=== PATIENT | female | born 1985 | race Caucasian/White ===

== ENCOUNTER 2016-06-20 08:42 | Emergency (ER) | payer OTHER ==
[~2016-06-20] VITALS: Ht 170.2 cm; Wt 87.0 kg
[~2016-06-20 08:42] MED LIST: ACET1TAB40 PO; ALBU8.5H5 IH; AZIT250T94 PO; HYDR-3720 PO; IBUP800T25 PO; LOPE2CAP PO; MUPI22OI2 TOP; NAPR-260 PO; PRED20TA PO
[2016-06-20 08:53] VITALS: Ht 170.2 cm; Wt 87.0 kg
--- NOTE | 2016-06-20 09:09 | ERD ---
ER Documentation Chief Complaint Date/Time DATE: 06/20/16 Chief Complaint , vaginal bleeding HPI The patient is a 31-year-old female, A0, who presents to the Emergency Department with complaint of vaginal bleeding. The patient reports that after using the restroom this morning she wiped and noted a small amount of bleeding on the tissue paper. She has not had passage of any blood clots or tissue. The patient reports that her last menstrual period was 03/12/2016, and she believes that she is approximately 10.5 weeks . She has already obtained three ultrasounds during this , noting a live intrauterine gestation. She denies any abdominal pain or cramping. Denies dysuria, hematuria , flank pain, urinary frequency or urgency. Denies any vaginal discharge. Denies headache, dizziness, weakness, nausea, vomiting, diarrhea, lower extremities edema, calf swelling or calf tenderness. No other complaints at this time. ROS All systems reviewed and are negative except as per history of present illness. Medications Home Meds Active Scripts Nitrofurantoin Monohyd Macrocr (Macrobid) 100 Mg Capsr, 100 MG PO BID for 7 Days , CAP Prov:PAULY STEARNS PA-C 06/20/16 Prednisone* (Prednisone*) 20 Mg Tab, 40 MG PO DAILY for 4 Days, TAB Prov:JUSTICE NATHAN 02/16/16 Naproxen* (Naprosyn*) 500 Mg Tablet, 500 MG PO BID Y for PAIN AND/OR INFLAMMATION, #30 TAB Prov:LESVIA REDMAN PA-C 01/23/16 Mupirocin* (Bactroban*) 2% -22 Gram Oint...g., 1 APPLIC TOP BID for 7 Days, EA Prov:ROHAN BALLARD PA-C 12/28/15 Azithromycin* (Zithromax*) 250 Mg Tablet, 250 MG PO .JULIO CESAR DIRECTED, #6 TAB TAKE 500 MG (2 TABS) THE FIRST DAY THEN 250 MG (1 TAB) DAYS 2-5 Prov:NAHOMY ALMENDAREZ DO 04/28/15 Hydrocodone Bit-Acetaminophen* ([place]*) 7.5-325 Tablet, 1 TAB PO Q4H Y for PAIN , #20 TAB Prov:NAHOMY ALMENDAREZ DO 04/28/15 Ibuprofen* (Motrin*) 800 Mg Tab, 800 MG PO Q6H Y for PAIN AND OR ELEVATED TEMP, #30 TAB Prov:NAHOMY ALMENDAREZ DO 04/28/15 Prednisone* (Prednisone*) 20 Mg Tab, 60 MG PO DAILY for 5 Days, TAB 60mg po q day x 3 days, then 40mg po q day x 2 days. Prov:MANNY VINSON MD 01/06/15 Loperamide Hcl* (Imodium*) 2 Mg Capsule, 2 MG PO .AFTER EA LOOSE BM Y for DIARRHEA, #10 TAB Prov:MANNY VINSON MD 11/20/14 Acetaminophen-Codeine* (Acetaminophen-Cod #3*) 300-30 Mg Tab, 1 TAB PO Q4H Y for PAIN, #12 TAB Prov:MANNY VINSON MD 11/20/14 Azithromycin* (Zithromax*) 250 Mg Tablet, 250 MG PO .ZPACK DIRECTED, #6 TAB TAKE 500 MG (2 TABS) THE FIRST DAY THEN 250 MG (1 TAB) DAYS 2-5 Prov:MANNY VINSON MD 11/20/14 Reported Medications Albuterol Sulfate* (Albuterol Sulfate* HFA) 8.5 Gm Hfa.aer.ad, 2 PUFF IH Q4H Y for WHEEZING AND SOB, EA 12/23/14 Allergies Allergies: Coded Allergies: No Known Allergies (Verified Allergy, Mild, 01/23/16) PMhx/Soc History of Surgery: No Anesthesia Reaction: No Hx Neurological Disorder: No Hx Respiratory Disorders: No Hx Cardiac Disorders: No Hx Psychiatric Problems: No Hx Miscellaneous Medical Probl: No Hx Alcohol Use: No Hx Substance Use: No Hx Tobacco Use: No Physical Exam Vitals Vital Signs Date Time Temp Pulse Resp B/P Pulse Ox O2 Delivery O2 Flow Rate FiO2 06/20/16 08:53 98.2 70 18 120/76 98 Physical Exam GENERAL: Well-developed, well-nourished, female, in no acute distress. HEENT: Head is normocephalic, atraumatic. No scleral pallor or icterus. Pupils equal, round and reactive to light. Extraocular movements intact. Conjunctiva pink. Moist mucous membranes. NECK: Supple. RESPIRATORY: Lungs are clear to auscultation bilaterally. Equal breath sounds. Normal expiratory effort. CARDIOVASCULAR: Regular rate and rhythm. S1 and S2 normal. GASTROINTESTINAL: Abdomen is soft, non-tender, and non-distended. No guarding, no rebound tenderness. Normal bowel sounds. N FLANK: No CVA tenderness. BACK: No midline tenderness. EXTREMITIES: No clubbing, cyanosis, or edema. Normal skin perfusion. Moving all extremities. Muscle tone is normal. No focal swelling or erythema. NEUROLOGIC: The patient is alert, awake, and oriented x 3. No focal neurologic deficits. INTEGUMENT: Skin is intact. Warm and dry. No rashes, no petechiae present. PSYCHIATRIC: Cooperative. Appropriate. Result Diagram: 06/20/16925 Results 24 hrs Laboratory Tests Test 06/20/16 09:20 06/20/16 09:26 Urine Color LT. YELLOW Urine Clarity CLEAR Urine pH 6.0 Urine Specific [place] 1.025 Urine Ketones NEGATIVE Urine Nitrite NEGATIVE Urine Bilirubin NEGATIVE Urine Urobilinogen 0.2 E.U./dL Urine Leukocyte Esterase NEGATIVE Urine Microscopic RBC 5-10/HPF Urine Microscopic WBC 10-25/HPF Urine Epithelial Cells MANY Urine Bacteria MANY Urine Mucus MANY Urine Hemoglobin 1+ Urine Glucose NEGATIVE% Urine Total Protein NEGATIVE White Blood Count 11.710^3/ul Red Blood Count 4.1610^6/ul Hemoglobin 12.0g/dl Hematocrit 35.5% Mean Corpuscular Volume 85.3fl Mean Corpuscular Hemoglobin 28.8pg Mean Corpuscular Hemoglobin Concent 33.8g/dl Red Cell Distribution Width 16.7% Platelet Count 66658^3/UL Mean Platelet Volume 9.3fl Neutrophils % 71.9% Lymphocytes % 16.6% Monocytes % 6.3% Eosinophils % 4.2% Basophils % 0.5% Nucleated Red Blood Cells % 0.0/100WBC Neutrophils # 8.410^3/ul Lymphocytes # 1.910^3/ul Monocytes # 0.710^3/ul Eosinophils # 0.510^3/ul Basophils # 0.110^3/ul Nucleated Red Blood Cells # 0.010^3/ul Beta HCG, Quantitative 54036.0mIU/ml Procedures/MDM DIAGNOSTIC TESTS AND INTERPRETATION: PROCEDURE: US OB. CLINICAL INDICATION: Vaginal bleeding. TECHNIQUE: Transabdominal and transvaginal views of the pelvis are available for review. COMPARISON: No. FINDINGS: The uterus and is normal in size containing a gestational sac. The gestational sac is identified in the endometrial cavity containing a yolk sac. The yolk sac measures 6.4 mm. There is an anterior placenta with no evidence of a subchorionic hemorrhage. No free fluid is noted in the cul-de-sac. [place]-rump length: 4.7 cm equals 11 weeks 4 days. A U A equals 10 weeks 6 days prior heart rate: 166 beats per minute Nuchal translucency: Not evaluated. Ultrasound estimated gestational age: 1022-vzdo-8-days. There is no free fluid. The right ovary measures 3.2 x 2 x 1.6 cm with normal blood flow on Doppler imaging. The left ovary is not visualized. No abnormal adnexal mass is noted. IMPRESSION: Single live intrauterine with an estimated gestational age of 10-week 6 days.. Physician Baljit Date Time Electronically viewed and signed by Esteban Maynard Physician on 06/20/2016 10:07 The possibility of threatened was discussed with the patient and she was told to follow up with her TEXTURE ARTIST within 2-3 days for re-evaluation. The patient complies and agrees with plan. MEDICAL DECISION MAKING: This is a 31-year-old female presenting to the Emergency Department complaining of vaginal bleeding. She had no significant abnormalities on physical examination. Vital signs were normal. Differential diagnosis includes, but is not limited to, ectopic , cervicitis, fibroids, molar , implantation bleeding, heterotopic , septic , missed , incomplete , inevitable , threatened , complete , coagulopathy, fibroids, adenomyosis, endometriosis, neoplasia, vaginitis, PID, vaginal trauma, dysfunctional uterine bleeding. No significant abnormalities were noted on testing ordered. Beta hCG is 80,377. Rh (+), no indication for RhoGAM. Ultrasound performed revealed an intrauterine gestation of 10 weeks 6 days. Additionally, urinalysis revealed 10-25 WBCs with many bacteria, concerning for urinary tract infection. Urine culture sent. After rest, the patient reports no new complaints. Upon review and interpretation of the patient's presentation and overall ER course, I believe the patient's symptoms are most consistent with threatened , urinary tract infection, vaginal bleeding during . At this time the patient patient is in stable condition with and therefore she can be discharged home with prescription for Macrobid and given strict return precautions for signs of deteriorating or worsening condition. The patient is advised to follow up with her TEXTURE ARTIST within 2-3 days for reevaluation and further management, or return to the ER sooner for any worsening symptoms. I shared all laboratory and diagnostic imaging studies with the patient at length and in great detail, and the patient verbally understands and agrees with the plan for further observation and care as an outpatient. At the time of discharge , all questions were answered. Departure Diagnosis: Primary Impression: Threatened Additional Impressions: Vaginal bleeding in patient at less than 20 weeks gestation Urinary tract infection Urinary tract infection type: acute cystitis Hematuria presence: with hematuria Qualified Code: N30.01 - Acute cystitis with hematuria Condition: Stable Patient Instructions: Bleeding During Early , Possible Miscarriage ( Threatened ), Understanding Urinary Tract Infections (UTIs) Additional Instructions: Call your TEXTURE ARTIST TOMORROW for an appointment during the next 2-3 days for recheck of beta hCG, reevaluation and further management. See the doctor sooner or return here if your condition worsens before your appointment time. PAULY STEARNS PA-C Jun 20, 2016 09:09
[2016-06-20 09:36] LABS: ADD SCAN DIFF NO
[2016-06-20 09:37] LABS: BASOPHIL # 0.1 10^3/ul (0.0-0.1); BASOPHILS % 0.5 % (0.0-2.0); EOSINOPHILS # 0.5 10^3/ul (0.0-0.5); EOSINOPHILS % 4.2 % (0.0-7.0); HEMATOCRIT 35.5 % (37.0-47.0); LYMPHOCYTES # 1.9 10^3/ul (0.8-2.9); LYMPHOCYTES % 16.6 % (15.0-51.0); MEAN CORPUSCULAR HEMOGLOBIN 28.8 pg (29.0-33.0); MEAN CORPUSCULAR HGB CONC 33.8 g/dl (32.0-37.0); MEAN CORPUSCULAR VOLUME 85.3 fl (82.0-101.0); MEAN PLATELET VOLUME 9.3 fl (7.4-10.4); MONOCYTE # 0.7 10^3/ul (0.3-0.9); MONOCYTES % 6.3 % (0.0-11.0); NEUTROPHIL # 8.4 10^3/ul (1.6-7.5); NEUTROPHILS % 71.9 % (39.0-77.0); PLATELET COUNT 374 10^3/UL (140-415); RED BLOOD COUNT 4.16 10^6/ul (4.20-5.40); RED CELL DISTRIBUTION WIDTH 16.7 % (11.5-14.5); WHITE BLOOD COUNT 11.7 10^3/ul (4.8-10.8)
[2016-06-20 09:38] LABS: ADD UMIC YES; URINE BILIRUBIN (Dip) NEGATIVE (NEGATIVE); URINE BLOOD (Dip) 1+ (NEGATIVE); URINE COLOR LT. YELLOW (YELLOW); URINE GLUCOSE (Dip) NEGATIVE (NEGATIVE); URINE KETONES (Dip) NEGATIVE (NEGATIVE); URINE LEUKOCYTE ESTERASE (Dip) NEGATIVE (NEGATIVE); URINE NITRITE (Dip) NEGATIVE (NEGATIVE); URINE TOTAL PROTEIN (Dip) NEGATIVE (NEGATIVE); URINE UROBILINOGEN (Dip) 0.2 E.U./dL (0.1-1.0)
[2016-06-20 09:45] LABS: BACTERIA,URINE MANY; MUCUS,URINE MANY
--- NOTE | 2016-06-20 10:07 | RADRPT ---
PROCEDURE: US OB. CLINICAL INDICATION: Vaginal bleeding. TECHNIQUE: Transabdominal and transvaginal views of the pelvis are available for review. COMPARISON: No. FINDINGS: The uterus and is normal in size containing a gestational sac. The gestational sac is identified in the endometrial cavity containing a yolk sac. The yolk sac measures 6.4 mm. There is an anterior p lacenta with no evidence of a subchorionic hemorrhage. No free fluid is noted in the cul-de-sac. [place]-rump length:4.7 cm equals 11 weeks 4 days. A U A equals 10 weeks 6 days prior heart rate:166 beats per minute Nuchal translucency:Not evaluated. Ultrasound estimated gestational age:1080-okgk-9-days. There is no free fluid. The right ovary measures 3.2 x 2 x 1.6 cm with normal blood flow on Doppler imaging. The left ovary is not visualized. No abnormal adnexal mass is noted. IMPRESSION: 1. Single live intrauterine with an estimated gestational age of 10-week 6 days.. RPTAT:AAJJ Physician Baljit Date Time Electronically viewed and signed by Physician Baljit on 06/20/2016 10:07 RICKI/
[2016-06-20] MEDS ORDERED: MACBID PO (10:40)
== END 2016-06-20 10:45 | disposition home or self-care (01) ==
LOC: FTE 08:42
DX: O20.0 Threatened abortion (principal); O23.11 Infections of bladder in pregnancy, first trimester; J45.909 Unspecified asthma, uncomplicated; O99.511 Diseases of the respiratory system complicating pregnancy, first trimester; Z3A.10 10 weeks gestation of pregnancy
CPT/HCPCS: 36415; 76801; 81001; 84702; 85025; 86900; 86901; 87086; Z7502; 81003

== ENCOUNTER 2016-08-13 15:39 | Emergency (ER) | payer OTHER ==
[~2016-08-13] VITALS: Ht 170.2 cm; Wt 89.5 kg
[~2016-08-13 15:39] MED LIST changes: +MACBID PO
[2016-08-13 15:45] VITALS: Ht 170.2 cm; Wt 89.5 kg
[2016-08-13 18:08] LABS: URINE BLOOD (Dip) POC 2+ (NEGATIVE)
--- NOTE | 2016-08-13 18:37 | ERD ---
ER Documentation Chief Complaint Date/Time DATE: 08/13/16 TIME: 18:37 Chief Complaint BIB SELF C/O BACK PAIN SINCE FRIDAY. 19 WEEKS HPI Is a 31-year-old female who presents the emergency department today complaining of low back pain for the past 5 days. She states she has taken Tylenol with limited improvement in pain. Denies any falls or trauma. States she is 19 weeks . States the pain was a little bit down into her buttocks. Denies any fevers or chills, loss of bowel or bladder control. Denies any dysuria, vaginal bleeding. ROS All systems reviewed and are negative except as per history of present illness. Medications Home Meds Active Scripts Nitrofurantoin Monohyd Macrocr (Macrobid) 100 Mg Capsr, 100 MG PO BID for 7 Days , CAP Prov:PAULY STEARNS PA-C 06/20/16 Prednisone* (Prednisone*) 20 Mg Tab, 40 MG PO DAILY for 4 Days, TAB Prov:JUSTICE NATHAN 02/16/16 Naproxen* (Naprosyn*) 500 Mg Tablet, 500 MG PO BID Y for PAIN AND/OR INFLAMMATION, #30 TAB Prov:LESVIA REDMAN PA-C 01/23/16 Mupirocin* (Bactroban*) 2% -22 Gram Oint...g., 1 APPLIC TOP BID for 7 Days, EA Prov:ROHAN BALLARD PA-C 12/28/15 Azithromycin* (Zithromax*) 250 Mg Tablet, 250 MG PO .ZPACK DIRECTED, #6 TAB TAKE 500 MG (2 TABS) THE FIRST DAY THEN 250 MG (1 TAB) DAYS 2-5 Prov:NAHOMY ALMENDAREZ DO 04/28/15 Hydrocodone Bit-Acetaminophen* ([place]*) 7.5-325 Tablet, 1 TAB PO Q4H Y for PAIN , #20 TAB Prov:NAHOMY ALMENDAREZ DO 04/28/15 Ibuprofen* (Motrin*) 800 Mg Tab, 800 MG PO Q6H Y for PAIN AND OR ELEVATED TEMP, #30 TAB Prov:NAHOMY ALMENDAREZ AOvidio DO 04/28/15 Prednisone* (Prednisone*) 20 Mg Tab, 60 MG PO DAILY for 5 Days, TAB 60mg po q day x 3 days, then 40mg po q day x 2 days. Prov:MANNY VINSON MD 01/06/15 Loperamide Hcl* (Imodium*) 2 Mg Capsule, 2 MG PO .AFTER EA LOOSE BM Y for DIARRHEA, #10 TAB Prov:MANNY VINSON MD 11/20/14 Acetaminophen-Codeine* (Acetaminophen-Cod #3*) 300-30 Mg Tab, 1 TAB PO Q4H Y for PAIN, #12 TAB Prov:MANNY VINSON MD 11/20/14 Azithromycin* (Zithromax*) 250 Mg Tablet, 250 MG PO .ZPACK DIRECTED, #6 TAB TAKE 500 MG (2 TABS) THE FIRST DAY THEN 250 MG (1 TAB) DAYS 2-5 Prov:MANNY VINSON MD 11/20/14 Reported Medications Albuterol Sulfate* (Albuterol Sulfate* HFA) 8.5 Gm Hfa.aer.ad, 2 PUFF IH Q4H Y for WHEEZING AND SOB, EA 12/23/14 Allergies Allergies: Coded Allergies: No Known Allergies (Verified Allergy, Mild, 01/23/16) PMhx/Soc History of Surgery: Yes () Anesthesia Reaction: No Hx Neurological Disorder: No Hx Respiratory Disorders: Yes (ASTHMA) Hx Cardiac Disorders: No Hx Psychiatric Problems: No Hx Miscellaneous Medical Probl: No Hx Alcohol Use: No Hx Substance Use: No Hx Tobacco Use: No Smoking Status: Never smoker Physical Exam Vitals Vital Signs Date Time Temp Pulse Resp B/P Pulse Ox O2 Delivery O2 Flow Rate FiO2 08/13/16 15:45 98.5 92 20 123/58 98 Physical Exam Const: No acute distress Head: Atraumatic Eyes: Normal Conjunctiva ENT: Normal External Ears, Nose and Mouth. Neck: Full range of motion..~ No meningismus. Resp: Clear to auscultation bilaterally Cardio: Regular rate and rhythm, no murmurs Skin: No petechiae or rashes Back: Midline tenderness and bilateral paraspinal tenderness. Full active range of motion. Negative straight leg raise. Pulses 2+. Distal neurovascularly intact. Ext: No cyanosis, or edema Neur: Awake and alert Psych: Normal Mood and Affect Results 24 hrs Laboratory Tests Test 08/13/16 18:12 Bedside Urine pH (LAB) 5.5 Bedside Urine Protein (LAB) Negative Bedside Urine Glucose (UA) Negative Bedside Urine Ketones (LAB) Negative Bedside Urine Blood 2+ Bedside Urine Nitrite (LAB) Negative Bedside Urine Leukocyte Esterase (L Negative Procedures/MDM This is a 31-year-old female presents the emergency department today complaining of low back pain for the past 5 days. Patient is 19 weeks . She is had no trauma and I do not feel that she requires imaging at this time. Low suspicion for acute fracture dislocation. She is afebrile and otherwise well-appearing. She has no loss of bowel or bladder control. Low suspicion for cauda equina or abscess. Did obtain a UA UA negative for infection. 2+ hematuria Patient denied any vaginal bleeding and I am unsure as to cause of her hematuria however it is possible that she may have a kidney stone. Given the UA is negative for infection, low suspicion for pyelonephritis. Do not feel the patient requires antibiotics at this time. I have explained to the patient that she needs to have further evaluation of the hematuria by her [employer] and primary care physician. Patient appears to have good follow-up. Patient understood. Patient symptoms at this time is consistent with back pain and sciatic type pain in . Patient was instructed that she may continue taking the Tylenol. She was instructed to alternate ice and heat have asked Valentin to her that she may benefit from physical therapy. Patient understood Discussed the patient with Dr. Mckeon and he is in agreement with the plan. Departure Diagnosis: Primary Impression: Back pain Back pain location: low back pain Chronicity: acute Back pain laterality: midline Sciatica presence: unspecified whether sciatica present Qualified Code: M54.5 - Acute midline low back pain, with sciatica presence unspecified Additional Impression: Hematuria Condition: Fair Patient Instructions: Back Pain (Acute Or Chronic), Hematuria, Back Pain W/ Sciatica Additional Instructions: Call your primary care doctor TOMORROW for an appointment during the next 1-2 days.See the doctor sooner or return here if your condition worsens before your appointment time. Continue taking Tylenol for pain Follow-up with your primary care physician for possible referral to physical therapy Do gentle walking exercises TONE MOSQUEDA PA-C Aug 13, 2016 18:37
== END 2016-08-13 18:41 | disposition home or self-care (01) ==
LOC: FTE 15:39
DX: O26.892 Other specified pregnancy related conditions, second trimester (principal); M54.5 Low back pain; R31.9 Hematuria, unspecified; O99.512 Diseases of the respiratory system complicating pregnancy, second trimester; J45.909 Unspecified asthma, uncomplicated; Z3A.19 19 weeks gestation of pregnancy
CPT/HCPCS: 81003; Z7502; 99282

== ENCOUNTER 2016-08-27 16:53 | Emergency (ER) | payer OTHER ==
[~2016-08-27] VITALS: Ht 170.2 cm; Wt 90.0 kg
[2016-08-27 17:02] VITALS: Ht 170.2 cm; Wt 90.0 kg
[2016-08-27] MEDS ORDERED: ACET500C5 PO (17:30)
[2016-08-27] MEDS ORDERED: AMO500 PO (17:30)
[2016-08-27] MEDS ORDERED: D-ME473S18 PO (17:30)
--- NOTE | 2016-08-27 17:34 | ERD ---
ER Documentation Chief Complaint Date/Time DATE: 08/27/16 TIME: 17:33 Chief Complaint FEVER, DEAL, CONGESTION X1 DAY, DENIES SYMPTOMS S/ 21 WKS HPI This 31-year-old female presents with congestion cough and ear pain for last 3 days. She denies fevers. She is 29 weeks by dates. She denies abdominal pain, vaginal bleeding ROS All systems reviewed and are negative except as per history of present illness. Medications Home Meds Active Scripts Acetaminophen* (Tylophen*) 500 Mg Capsule, 1 CAP PO Q6H Y for PAIN AND OR ELEVATED TEMP, #15 CAP Prov:MANNY VINSON MD 08/27/16 Dextromethorphan Hb-Promethazine Hcl (Promethazine DM Syrup) 473 Ml Syrup, 5 ML PO Q6H Y for COUGH, #4 OZ Prov:MANNY VINSON MD 08/27/16 Amoxicillin* (Amoxicillin*) 500 Mg Cap, 500 MG PO TID for 10 Days, CAP Prov:MANNY VINSON MD 08/27/16 Nitrofurantoin Monohyd Macrocr (Macrobid) 100 Mg Capsr, 100 MG PO BID for 7 Days , CAP Prov:PAULY STEARNS PA-C 06/20/16 Prednisone* (Prednisone*) 20 Mg Tab, 40 MG PO DAILY for 4 Days, TAB Prov:JUSTICE NATHAN 02/16/16 Naproxen* (Naprosyn*) 500 Mg Tablet, 500 MG PO BID Y for PAIN AND/OR INFLAMMATION, #30 TAB Prov:LESVIA REDMAN PA-C 01/23/16 Mupirocin* (Bactroban*) 2% -22 Gram Oint...g., 1 APPLIC TOP BID for 7 Days, EA Prov:ROHAN BALLARD PA-C 12/28/15 Azithromycin* (Zithromax*) 250 Mg Tablet, 250 MG PO .JULIO CESAR DIRECTED, #6 TAB TAKE 500 MG (2 TABS) THE FIRST DAY THEN 250 MG (1 TAB) DAYS 2-5 Prov:NAHOMY ALMENDAREZ DO 04/28/15 Hydrocodone Bit-Acetaminophen* ([place]*) 7.5-325 Tablet, 1 TAB PO Q4H Y for PAIN , #20 TAB Prov:LEKKOSNAHOMY DO 04/28/15 Ibuprofen* (Motrin*) 800 Mg Tab, 800 MG PO Q6H Y for PAIN AND OR ELEVATED TEMP, #30 TAB Prov:NAHOMY ALMENDAREZ DO 04/28/15 Prednisone* (Prednisone*) 20 Mg Tab, 60 MG PO DAILY for 5 Days, TAB 60mg po q day x 3 days, then 40mg po q day x 2 days. Prov:MANNY VINSON MD 01/06/15 Loperamide Hcl* (Imodium*) 2 Mg Capsule, 2 MG PO .AFTER EA LOOSE BM Y for DIARRHEA, #10 TAB Prov:MANNY VINSON MD 11/20/14 Acetaminophen-Codeine* (Acetaminophen-Cod #3*) 300-30 Mg Tab, 1 TAB PO Q4H Y for PAIN, #12 TAB Prov:MANNY VINSON MD 11/20/14 Azithromycin* (Zithromax*) 250 Mg Tablet, 250 MG PO .ZPACK DIRECTED, #6 TAB TAKE 500 MG (2 TABS) THE FIRST DAY THEN 250 MG (1 TAB) DAYS 2-5 Prov:MANNY VINSON MD 11/20/14 Reported Medications Albuterol Sulfate* (Albuterol Sulfate* HFA) 8.5 Gm Hfa.aer.ad, 2 PUFF IH Q4H Y for WHEEZING AND SOB, EA 12/23/14 Allergies Allergies: Coded Allergies: No Known Allergies (Verified Allergy, Mild, 01/23/16) PMhx/Soc History of Surgery: Yes () Anesthesia Reaction: No Hx Neurological Disorder: No Hx Respiratory Disorders: Yes (ASTHMA) Hx Cardiac Disorders: No Hx Psychiatric Problems: No Hx Miscellaneous Medical Probl: No Hx Alcohol Use: No Hx Substance Use: No Hx Tobacco Use: No Physical Exam Vitals Vital Signs Date Time Temp Pulse Resp B/P Pulse Ox O2 Delivery O2 Flow Rate FiO2 08/27/16 17:02 99.4 108 20 132/69 96 Physical Exam Const: [], Not ill-appearing per Head: Atraumatic Eyes: Normal Conjunctiva ENT: Normal External Ears, Nose and Mouth. TMs show some slight redness and decreased light reflex. There is clear yellow nasal discharge. There is postnasal drip. Neck: Full range of motion..~ No meningismus. Resp: Clear to auscultation bilaterally Cardio: Regular rate and rhythm, no murmurs Abd: Soft, non tender, non distended. Normal bowel sounds Skin: No petechiae or rashes Back: No midline or flank tenderness Ext: No cyanosis, or edema Neur: Awake and alert Psych: Normal Mood and Affect Procedures/MDM Patient presents with URI symptoms and signs of otitis media. She will treated with amoxicillin, Tylenol and promethazine. Patient has no symptoms signs or complaints related to her and there is no signs of acute complications of . Patient is advised to follow-up with OB as scheduled otherwise return to the ER for new or worsening symptoms. The patient was stable with no new complaints during the ER course. Clinically, there is no current evidence to suggest meningitis, sepsis, acute abdomen, pneumonia, acute coronary syndrome, pulmonary embolism, or any other emergent condition appearing to require further evaluation or hospitalization. The patient should certainly return for any new or worsening symptoms per the aftercare instructions. They should otherwise follow-up with her primary care doctor for reevaluation this week. Departure Diagnosis: Primary Impression: Upper respiratory infection URI type: unspecified URI Qualified Code: J06.9 - Upper respiratory tract infection, unspecified type Condition: Stable Patient Instructions: Otitis Media, Abx Tx (Adult) Additional Instructions: Recheck for new or worsening symptoms or doctor. Drink plenty of fluids at home. MANNY VINSON MD Aug 27, 2016 17:34
[2016-08-27 17:37] VITALS: BP 128/71; PULSE 94; RESP 20; TEMP 99
== END 2016-08-27 17:41 | disposition home or self-care (01) ==
LOC: FTE 16:53
DX: O99.513 Diseases of the respiratory system complicating pregnancy, third trimester (principal); J06.9 Acute upper respiratory infection, unspecified; J45.909 Unspecified asthma, uncomplicated; Z3A.29 29 weeks gestation of pregnancy
CPT/HCPCS: 99284

== ENCOUNTER 2016-10-20 12:19 | Outpatient (CLI) | payer OTHER ==
[~2016-10-20] VITALS: Ht 170.2 cm; Wt 96.7 kg
[~2016-10-20 12:19] MED LIST changes: +ACET500C5 PO; +AMO500 PO; +D-ME473S18 PO
[2016-10-20 12:44] VITALS: Ht 170.2 cm; Wt 96.7 kg
[2016-10-20] MEDS ORDERED: CALC600T11 PO (12:49)
[2016-10-20] MEDS ORDERED: FERR325C PO (12:49)
[2016-10-20] MEDS ORDERED: PRENAT PO (12:49)
[2016-10-20 12:50] VITALS: BP 120/62; PULSE 82; RESP 18
[2016-10-20] MEDS ORDERED: LACTATED RINGER'S 1,000 ML IV ONE (13:00)
[2016-10-20 13:44] LABS: ALANINE AMINOTRANSFERASE 29 IU/L (13-69); ALBUMIN 3.6 g/dl (3.3-4.9); ALBUMIN/GLOBULIN RATIO 0.94; ALKALINE PHOSPHATASE 88 IU/L (42-121); AMYLASE 62 U/L (11-123); ANION GAP 18 (8-16); ASPARTATE AMINO TRANSFERASE 17 IU/L (15-46); BILIRUBIN,INDIRECT 0.1 mg/dl (0-1.1); BILIRUBIN,TOTAL 0.1 mg/dl (0.2-1.3); BLOOD UREA NITROGEN 6 mg/dl (7-20); CARBON DIOXIDE 22 mmol/L (21-31); CHLORIDE 105 mmol/L (97-110); CREATININE 0.54 mg/dl (0.44-1.00); GLUCOSE 67 mg/dl (70-220); POTASSIUM 4.1 mmol/L (3.5-5.1); SODIUM 141 mmol/L (135-144); TOTAL PROTEIN 7.4 g/dl (6.1-8.1)
--- NOTE | 2016-10-20 13:50 | RADRPT ---
PROCEDURE: CERVICAL LENGTH ULTRASOUND CLINICAL INDICATION: labor at 29 weeks gestational age. TECHNIQUE: Trans-abdominal images of the cervix were also obtained. The images were reviewed on a PACS workstation. COMPARISON: None. FINDINGS: There is a single live intrauterine . heart rate is 154 beats per minute. Position is cephalic and placenta is anterior. There is no placenta previa. The cervix is closed with a length of 5.7 cm. IMPRESSION: 1. Cervical length is 5.7 cm. RPTAT: QQ .Saad Herrera MD, MD Date Time Electronically viewed and signed by .Saad Herrera MD, on 10/20/2016 13:50 .R/
[2016-10-20 13:54] LABS: ADD UMIC YES; UR ASCORBIC ACID NEGATIVE (NEGATIVE); UR BILIRUBIN (Dip) NEGATIVE (NEGATIVE); UR BLOOD (Dip) 2+ mg/dL (NEGATIVE); UR CLARITY CLEAR (CLEAR); UR COLOR YELLOW (YELLOW); UR GLUCOSE (Dip) NEGATIVE (NEGATIVE); UR KETONES (Dip) NEGATIVE (NEGATIVE); UR LEUKOCYTE ESTERASE (Dip) NEGATIVE Leu/ul (NEGATIVE); UR NITRITE (Dip) NEGATIVE (NEGATIVE); UR RBC 3 /HPF (0-5); UR SPECIFIC GRAVITY (Dip) 1.006 (1.003-1.030); UR TOTAL PROTEIN (Dip) NEGATIVE (NEGATIVE); UR UROBILINOGEN (Dip) NEGATIVE (NEGATIVE)
[2016-10-20 14:18] LABS: BASOPHIL # 0.1 10^3/ul (0.0-0.1); BASOPHILS % 0.3 % (0.0-2.0); EOSINOPHILS # 0.1 10^3/ul (0.0-0.5); EOSINOPHILS % 0.9 % (0.0-7.0); HEMATOCRIT 32.7 % (37.0-47.0); HEMOGLOBIN 11.3 g/dl (12.0-16.0); LYMPHOCYTES # 1.3 10^3/ul (0.8-2.9); LYMPHOCYTES % 8.6 % (15.0-51.0); MEAN CORPUSCULAR HEMOGLOBIN 31.3 pg (29.0-33.0); MEAN CORPUSCULAR HGB CONC 34.6 g/dl (32.0-37.0); MEAN CORPUSCULAR VOLUME 90.6 fl (82.0-101.0); MEAN PLATELET VOLUME 10.3 fl (7.4-10.4); MONOCYTE # 0.9 10^3/ul (0.3-0.9); MONOCYTES % 5.9 % (0.0-11.0); NEUTROPHILS % 83.6 % (39.0-77.0); PLATELET COUNT 331 10^3/UL (140-415); RED BLOOD COUNT 3.61 10^6/ul (4.20-5.40); RED CELL DISTRIBUTION WIDTH 13.4 % (11.5-14.5); WHITE BLOOD COUNT 14.8 10^3/ul (4.8-10.8)
[2016-10-20] MEDS ORDERED: LACTATED RINGER'S 1,000 ML IV SCH (15:30)
--- NOTE | 2016-10-20 16:36 | QN ---
Documentation Comment iup 28 week gp3 co of nV vss exam wnl labs wnl a/p iup 28 weeks n/v improved-dc home DOLLY TOVAR MD Oct 20, 2016 16:36
--- NOTE | 2016-10-20 17:59 | TRIAGE ---
OB Triage Datetime Report Generated by CPN: 10/20/2016 17:59 Datetime: 10/20/2016 16:00 Nausea/Vomiting: Denies Monitor Mode: External Resting Tone [place]: Relaxed Heart Rate FHR Baseline Rate: 130 Monitor Mode: External US FHR Baseline Changes: No Baseline Change Variability: Moderate 6-25 bpm Accelerations: 15X15 Decelerations: None Category: Category I Comments: FHR difficult to keep on monitor Pain Assessment Pain Presence: None/Denies Datetime: 10/20/2016 15:00 Nausea/Vomiting: Denies Labor Evaluation Frequency: OCC Monitor Mode: External Quality: Mild Pattern: Normal: <= 5 Contractions in 10 Minutes Resting Tone [place]: Relaxed Contraction Comments: uterine irritability noted Heart Rate FHR Baseline Rate: 125 Monitor Mode: External US FHR Baseline Changes: No Baseline Change Variability: Moderate 6-25 bpm Accelerations: 15X15 Decelerations: None Category: Category I Comments: FHR difficult to monitor due to Gestational Age Pain Assessment Pain Presence: None/Denies Pain Assessment Comments: Pt denies feeling any pain or pressure with UC. Pt informs RN she feels "much better but is hungry" Datetime: 10/20/2016 14:00 Nausea/Vomiting: Denies Labor Evaluation Frequency: x3 contractions noted in last hour Monitor Mode: External Quality: Mild Pattern: Normal: <= 5 Contractions in 10 Minutes Resting Tone [place]: Relaxed Contraction Comments: Uterine irritability noted also Pain Assessment Pain Presence: None/Denies Pain Assessment Comments: Pt denies feeling any pain or pressure with contractions Datetime: 10/20/2016 12:47 Assessment Type: Triage Maternal Assessment Level of Consciousness: Fully Conscious DTR's/Clonus: DTRs 2+; No Clonus Headache: Denies Blurred Vision: No Respiratory Effort: Unlabored; Regular Rhythm; Equal Expansion Breath Sounds, Left: Clear and Equal Breath Sounds, Right: Clear and Equal Nausea/Vomiting: Denies RUQ Epigastric Pain: Denies Lower Extremities Edema: Bilateral Lower Extremities Degree: Trace Upper Extremities Edema: Bilateral Upper Extremities Degree: Trace Facial Edema: None Fall Risk Assessment History of Falling: (0) No Secondary Diagnosis: (0) No Ambulatory Aid: (0) Bedrest/Nurse Assist IV Therapy: (0) No Gait: (0) Normal/Bedrest/Immobile Mental Status: (0) Oriented to Own Ability Fall Score: 0 Fall Risk Score Definition: No Risk: No action required Datetime: 10/20/2016 12:46 Time of Arrival: 10/20/2016 12:15 EGA: 29.0 Arrived By: Wheelchair Arrived From: Other Unit in Hospital Chief Complaint: N/V Movement: Present Contractions: Irregular Rupture of Membranes: Denies Vaginal Bleeding: Normal Show Vaginal Discharge: Denies Recent Sexual Intercouse: Denies Abdominal Trauma: Not Applicable Patient Complaints: Nausea; Vomiting Time Provider Notified: 10/20/2016 12:52 Provider Notified: Delshad Initial Plan: Cervical Length, CBC, CMP, UA, amylase, lipase, 1L LR Bolus Datetime: 10/20/2016 12:39 Heart Rate FHR Baseline Rate: 135 Monitor Mode: Doppler Datetime: 10/20/2016 12:36 Comments: RN unable to find FHR on monitor. US monitor part switched out Datetime: 10/20/2016 12:30 Temperature Route: Oral Datetime: 10/20/2016 12:22 Stage of : OB Triage
== END 2016-10-20 16:25 | disposition home or self-care (01) ==
LOC: OBT 12:19 → L-D 12:21 → OBT 16:25
PROVIDERS: ATTEND Obstetrics & Gynecology
DX: O21.2 Late vomiting of pregnancy (principal); Z3A.28 28 weeks gestation of pregnancy
CPT/HCPCS: 36415; 76817; 80053; 81001; 82150; 83690; 85025; 96360; 96361; J7120; Z7500; G0463

== ENCOUNTER 2016-12-17 15:08 | Outpatient (CLI) | payer OTHER ==
[~2016-12-17] VITALS: Ht 170.2 cm; Wt 98.1 kg
[~2016-12-17 15:08] MED LIST changes: -ACET1TAB40 PO; -ACET500C5 PO; -AMO500 PO; -AZIT250T94 PO; +CALC600T24 PO; -D-ME473S18 PO; +FERR325C PO; -HYDR-3720 PO; -IBUP800T25 PO; -LOPE2CAP PO; -MACBID PO; -MUPI22OI2 TOP; -NAPR-260 PO; -PRED20TA PO; +PRENAT PO
[2016-12-17 15:23] VITALS: Ht 170.2 cm; Wt 98.1 kg
[2016-12-17 15:24] VITALS: BP 118/71; PULSE 92; RESP 16
--- NOTE | 2016-12-17 16:24 | RADRPT ---
PROCEDURE: US OB. CLINICAL INDICATION: Trauma due to a fall. Decreased motion. TECHNIQUE: Multiple sonographic images of the uterus were obtained. The images were revi ewed on a PACS workstation. COMPARISON: No prior studies are available for comparison. FINDINGS: There is a single live intrauterine gestation. heart rate is 141 beats per minute. Measurements were made in order to determine age. The results are as follows: BPD = not well visualized. HC = not well visualized. AC = 36.29 cm. FL = 7.37 cm. Estimated weight is 3801 +/- 608 grams. LMP growth percentile is 96 %. Menstrual age by ultrasound dates is 39 weeks is 0 days. The estimated date of delivery is 12/24/2016. Position is cephalic and placenta is anterior grade 1. There is no evidence for an abruption or plac enta previa. IMPRESSION: 1. Single live intrauterine gestation of 39 weeks 0 days menstrual age by ultrasound dates. 2. The estimated date of delivery is 12/24/2016. 3. Limited study with head not well visualized. RPTAT: QQ .Saad Herrera MD, Date Time Electronically viewed and signed by .Saad Herrera MD, on 12/17/2016 16:24 .R/
--- NOTE | 2016-12-17 16:30 | RADRPT ---
PROCEDURE: US biophysical profile. CLINICAL INDICATION: Trauma due to a fall. Decreased motion. TECHNIQUE: Multiple sonographic images of the uterus were obtained. The images were revi ewed on a PACS workstation. COMPARISON: No prior studies are available for comparison. FINDINGS: There is a single live intrauterine gestation. heart rate is 141 beats per minute. The position is cephalic. The placenta is anterior grade 1 with no abruption or previa. The TYREE is 9.5 cm. (Normal = 5-20 cm.) Breathing Movement: 2 Gross Body Movement: 2 Tone: 2 Qualitative Amniotic Fluid Volume: 2 TOTAL: 8 IMPRESSION: 1. The biophysical score is 8/8. RPTAT: QQ .Saad Herrera MD, Date Time Electronically viewed and signed by .Saad Herrera MD, on 12/17/2016 16:29 .R/
[2016-12-17 17:21] LABS: ADD UMIC YES; UR ASCORBIC ACID NEGATIVE (NEGATIVE); UR BACTERIA FEW /HPF (NONE SEEN); UR BILIRUBIN (Dip) NEGATIVE (NEGATIVE); UR BLOOD (Dip) NEGATIVE (NEGATIVE); UR CLARITY CLEAR (CLEAR); UR COLOR YELLOW (YELLOW); UR GLUCOSE (Dip) NEGATIVE (NEGATIVE); UR KETONES (Dip) NEGATIVE (NEGATIVE); UR LEUKOCYTE ESTERASE (Dip) 1+ Leu/ul (NEGATIVE); UR NITRITE (Dip) NEGATIVE (NEGATIVE); UR RBC 2 /HPF (0-5); UR SPECIFIC GRAVITY (Dip) 1.004 (1.003-1.030); UR SQUAMOUS EPITHELIAL CELL FEW /HPF (FEW); UR TOTAL PROTEIN (Dip) NEGATIVE (NEGATIVE); UR UROBILINOGEN (Dip) NEGATIVE (NEGATIVE)
--- NOTE | 2016-12-17 19:33 | TRIAGE ---
OB Triage Datetime Report Generated by CPN: 12/17/2016 19:33 Datetime: 12/17/2016 18:57 Labor Evaluation Frequency: 0 Duration (sec)2399: 0 Pattern: Normal: <= 5 Contractions in 10 Minutes Resting Tone [place]: Relaxed Heart Rate FHR Baseline Rate: 125 Monitor Mode: External US FHR Baseline Changes: No Baseline Change Variability: Moderate 6-25 bpm Accelerations: 15X15 Decelerations: None Category: Category I Pain Assessment Pain Scale: 0 Pain Presence: None/Denies Pain Type: N/A Pain Goal: 0 Pain Relief Measures: Comfort Measures Vaginal Exam Membrane Status: Intact Datetime: 12/17/2016 18:24 Labor Evaluation Frequency: 0 Monitor Mode: External Duration (sec)2399: 0 Quality: Mild Resting Tone [place]: Relaxed Heart Rate FHR Baseline Rate: 120 Monitor Mode: External US FHR Baseline Changes: No Baseline Change Variability: Moderate 6-25 bpm Accelerations: 15X15 Decelerations: None Category: Category I Datetime: 12/17/2016 17:12 Maternal Assessment Level of Consciousness: Fully Conscious DTR's/Clonus: DTRs 2+; No Clonus Headache: Denies Blurred Vision: No Respiratory Effort: Unlabored Breath Sounds, Left: Clear and Equal Breath Sounds, Right: Clear and Equal Nausea/Vomiting: Denies RUQ Epigastric Pain: Denies Facial Edema: None Labor Evaluation Frequency: 0 Monitor Mode: External Duration (sec)2399: 0 Resting Tone [place]: Relaxed Heart Rate FHR Baseline Rate: 125 Monitor Mode: External US FHR Baseline Changes: No Baseline Change Variability: Moderate 6-25 bpm Accelerations: 15X15 Decelerations: None Category: Category I Datetime: 12/17/2016 16:04 Labor Evaluation Frequency: x1 Monitor Mode: External Duration (sec)2399: 120 Quality: Mild Pattern: Normal: <= 5 Contractions in 10 Minutes Resting Tone [place]: Relaxed Heart Rate FHR Baseline Rate: 135 Monitor Mode: External US Variability: Moderate 6-25 bpm Accelerations: 15X15 Decelerations: None Category: Category I Pain Presence: None/Denies Pain Type: N/A Datetime: 12/17/2016 15:27 Assessment Type: Triage Maternal Assessment Level of Consciousness: Fully Conscious DTR's/Clonus: DTRs 2+; No Clonus Headache: Denies Blurred Vision: No Respiratory Effort: Unlabored; Regular Rhythm; Equal Expansion Breath Sounds, Left: Clear and Equal Breath Sounds, Right: Clear and Equal Nausea/Vomiting: Denies RUQ Epigastric Pain: Denies Lower Extremities Edema: None Degree: None Upper Extremities Edema: None Degree: None Facial Edema: None Fall Risk Assessment History of Falling: (0) No Secondary Diagnosis: (0) No Ambulatory Aid: (0) Bedrest/Nurse Assist IV Therapy: (0) No Gait: (0) Normal/Bedrest/Immobile Mental Status: (0) Oriented to Own Ability Fall Score: 0 Fall Risk Score Definition: No Risk: No action required Datetime: 12/17/2016 15:26 Time of Arrival: 12/17/2016 15:03 EGA: 37.2 Arrived By: Wheelchair Arrived From: Home Chief Complaint: pt. came to hospital c/o fell, landed with knee and right elbow, deny uc, deny va g. bleeding, deny srom Movement: Present Contractions: Denies/Absent Rupture of Membranes: Denies Vaginal Bleeding: None Vaginal Discharge: Denies Recent Sexual Intercouse: Denies Abdominal Trauma: Not Applicable Patient Complaints: None Datetime: 12/17/2016 15:21 EGA: 29.0 Datetime: 12/17/2016 15:20 EGA: 27.3 Datetime: 10/20/2016 12:47 Fall Score: 0 Fall Risk Score Definition: No Risk: No action required Datetime: 10/20/2016 12:46 EGA: 29.0
--- NOTE | 2016-12-17 19:33 | PN ---
Triage Information Date/Time Reason for visit: s/p fall Weeks of Gestation 37 weeks /Para Diabetes: none Hypertention: none Objective Vital Signs Date Time Temp Pulse Resp B/P Pulse Ox O2 Delivery O2 Flow Rate FiO2 12/17/16 15:24 98.1 92 16 118/71 Heart Rate: 130's Heart Rate Comments Category I Contractions: >10 Minutes Apart Results/Medications Results 24 hrs Laboratory Tests Test 12/17/16 15:40 Urine Color YELLOW Urine Clarity CLEAR Urine pH 7.0 Urine Specific [place] 1.004 Urine Ketones NEGATIVE Urine Nitrite NEGATIVE Urine Bilirubin NEGATIVE Urine Urobilinogen NEGATIVE Urine Leukocyte Esterase 1+ H Urine Microscopic RBC 2 Urine Microscopic WBC 2 Urine Squamous Epithelial Cells FEW Urine Bacteria FEW A Urine Hemoglobin NEGATIVE Urine Glucose NEGATIVE Urine Total Protein NEGATIVE Imaging Results Placenta normal BPP 10/01 Disposition: Discharge Assessment/Plan Patient states while walking, her left ankle twisted and she lost her balance. Patient denies any abdominal trauma, abdominal pain, pelvic pain, leakage of fluid or vaginal bleeding. Patient reports good movement. Patient is able to ambulate without difficulty. D/C home. Follow up on 12/19/2016 for NST and TYREE. INES VARGAS MD Dec 17, 2016 19:33
== END 2016-12-17 19:46 | disposition home or self-care (01) ==
LOC: OBT 15:08 → L-D 15:10 → OBT 19:46
PROVIDERS: ATTEND Obstetrics & Gynecology
DX: O9A.213 Injury, poisoning and certain other consequences of external causes complicating pregnancy, third trimester (principal); S99.912A Unspecified injury of left ankle, initial encounter; Z3A.37 37 weeks gestation of pregnancy; X50.1XXA Overexertion from prolonged static or awkward postures, initial encounter; Y93.01 Activity, walking, marching and hiking
CPT/HCPCS: 36415; 76815; 76818; 81001; Z7500; G0463

== ENCOUNTER 2016-12-19 09:22 | Outpatient (CLI) | payer OTHER ==
[~2016-12-19] VITALS: Ht 170.2 cm; Wt 97.7 kg
[2016-12-19 09:33] VITALS: Ht 170.2 cm; Wt 97.7 kg
[2016-12-19 09:34] VITALS: BP 118/67; PULSE 88; RESP 18
--- NOTE | 2016-12-19 10:43 | RADRPT ---
PROCEDURE: OB ultrasound for biophysical profile CLINICAL INDICATION: Oligohydramnios TECHNIQUE: Multiple sonographic images of the pelvis were obtained. Transabdominal views of the g ravid uterus are available for review. The images were reviewed on a PACS workstation. COMPARISON: Biophysical profile dated 12/17/2016 FINDINGS: breathing movement = 2/2 tone = 2/2 motion = 2/2 TYREE = 2/2 TYREE = 15.4 cm Single live intrauterine with cardiac activity of 146 bpm. position is cephal ic. The placenta is anterior. IMPRESSION: 1. Single live intrauterine gestation. 2. Biophysical profile = 10/01. 3. TYREE = 15.4 cm. RPTAT: HH .Liliam Palm MD, Date Time Electronically viewed and signed by .Liliam Palm MD, on 12/19/2016 10:43 .G/
--- NOTE | 2016-12-19 10:58 | TRIAGE ---
OB Triage Datetime Report Generated by CPN: 12/19/2016 10:57 Datetime: 12/19/2016 10:25 Stage of : OB Triage Maternal Assessment Level of Consciousness: Fully Conscious Labor Evaluation Frequency: NONE Monitor Mode: External Resting Tone [place]: Relaxed Heart Rate FHR Baseline Rate: 145 Monitor Mode: External US Variability: Moderate 6-25 bpm Accelerations: 15X15 Decelerations: None Category: Category I Pain Assessment Pain Scale: 0 Pain Goal: 3 Vaginal Exam Membrane Status: Intact Vaginal Bleeding: None Datetime: 12/19/2016 09:31 Assessment Type: Triage Maternal Assessment Level of Consciousness: Fully Conscious DTR's/Clonus: DTRs 2+; No Clonus Headache: Denies Blurred Vision: No Respiratory Effort: Unlabored; Regular Rhythm; Equal Expansion Breath Sounds, Left: Clear and Equal Breath Sounds, Right: Clear and Equal Nausea/Vomiting: Denies RUQ Epigastric Pain: Denies Lower Extremities Edema: None Degree: None Upper Extremities Edema: None Degree: None Facial Edema: None Fall Risk Assessment History of Falling: (0) No Secondary Diagnosis: (0) No Ambulatory Aid: (0) Bedrest/Nurse Assist IV Therapy: (0) No Gait: (0) Normal/Bedrest/Immobile Mental Status: (0) Oriented to Own Ability Fall Score: 0 Fall Risk Score Definition: No Risk: No action required Datetime: 12/19/2016 09:29 Time of Arrival: 12/19/2016 09:13 EGA: 37.4 Arrived By: Ambulatory Arrived From: Home Chief Complaint: PT HERE FOR REPEAT NST/BPP FOR REPEAT TYREE Movement: Present Contractions: Denies/Absent Rupture of Membranes: Denies Vaginal Bleeding: None Vaginal Discharge: Denies Recent Sexual Intercouse: Denies Abdominal Trauma: Not Applicable Patient Complaints: None Time Provider Notified: 12/19/2016 10:57 Provider Notified: DELSHAD Initial Plan: BPP/NST Datetime: 12/19/2016 09:26 Monitor Mode: External Monitor Mode: External US Datetime: 12/17/2016 18:15 Pain Assessment Pain Scale: 0 Pain Presence: None/Denies Pain Type: N/A Pain Goal: 0 Datetime: 12/17/2016 15:27 Fall Score: 0 Fall Risk Score Definition: No Risk: No action required Datetime: 12/17/2016 15:26 EGA: 37.2 Datetime: 12/17/2016 15:21 EGA: 29.0 Datetime: 12/17/2016 15:20 EGA: 27.3 Datetime: 10/20/2016 12:47 Fall Score: 0 Fall Risk Score Definition: No Risk: No action required Datetime: 10/20/2016 12:46 EGA: 29.0
--- NOTE | 2016-12-19 11:20 | CONS ---
Date/Time of Note Date/Time of Note DATE: 12/19/16 TIME: 11:12 Consultation Date/Type/Reason Admit Date/Time December 19, 2016 OB triage consult. This patient is a 31 years old 3 para 2 0 who had 2 previous deliveries by section. Her estimated date of confinement is 2016 which makes her 37 weeks and 4 days now She is in the hospital due to history of a oligohydramnios. Today she will be worked up and will evaluate for possible low TYREE. Her lab works during this basically are within normal limits with blood type of a Rh+ hepatitis B surface antigen nonreactive HIV RPR Chlamydia gonorrhea were all negative currently she is taking her vitamin and calcium and iron pills. Her general vital signs appear to be within normal limits with blood pressure of 118/67, pulse rate 88 respiration 18 temperature 98.6,,, oxygen saturation was 97 at room temperature. .On examination today her abdomen is soft she has very rare contractions heart tracings are normal with good variability occasional accelerations and no decelerations . Constitutional: No chills, No diaphoresis, No disoriented, No febrile, No improved, No no complaints, No other, No poor po, No requiring IVF, No requiring O2 Eyes: No discharge, No no complaints, No other, No pain, No redness, No visual change ENT: No bleeding, No congestion, No discharge, No dysphagia, No no complaints, No other, No pain, No sore throat Respiratory: No cough, No no complaints, No other, No pain, No pleuritic pain, No shortness of breath, No sputum, No wheezing Cardiovascular: No chest pain, No edema, No lightheadedness, No no complaints, No orthopenea, No other, No palpitations, No paroxysmal nocturnal dyspnea Gastrointestinal: No blood, No constipation, No decreased appetite, No diarrhea , No flatus, No nausea, No no complaints, No other, No pain, No passing stool, No vomiting Genitourinary: other (Due to lack of any contractions pelvic examination was not performed), No bleeding, No discharge, No dysuria, No flank pain, No hematuria, No no complaints Musculoskeletal: No back pain, No bone/joint pain, No neck pain, No no complaints, No other, No restricted range of motion, No swelling Skin: No bruising, No erythema, No laceration, No no complaints, No other, No pruritis, No rash, No skin lesions Neurologic: other (Knee-jerk reflex was normal), No confusion, No dizziness, No focal-weakness, No headache, No no complaints , No seizure, No syncope Endocrine: No dry skin, No no complaints, No other, No polydypsia, No polyuria , No temp intolerance Additional Comments . An ultrasound study was performed and the report was a single live intrauterine with cardiac activity 146 bpm in vertex presentation placenta was anterior amniotic fluid index was reported 15.4 cm which is quite improvement from the previous one her biophysical profile reported 10/01 With these positive finding patient was discharged home to be followed by her technical specialist in 4 days End of dictation Social History Smoking Status: Never smoker Exam/Review of Systems Vital Signs Vitals Vital Signs Date Time Temp Pulse Resp B/P Pulse Ox O2 Delivery O2 Flow Rate FiO2 12/19/16 09:34 98.6 88 18 118/67 97 Room Air HANNAH FERGUSON MD Dec 19, 2016 11:20
== END 2016-12-19 11:10 | disposition home or self-care (01) ==
LOC: OBT 09:22 → L-D 09:22 → OBT 11:10
PROVIDERS: ATTEND Obstetrics & Gynecology
DX: O41.03X0 Oligohydramnios, third trimester, not applicable or unspecified (principal); Z3A.37 37 weeks gestation of pregnancy
CPT/HCPCS: 76818; Z7500; G0463

== ENCOUNTER 2016-12-26 16:02 | Inpatient (IN) | payer OTHER ==
[~2016-12-26] VITALS: Ht 170.2 cm; Wt 99.7 kg
[2016-12-26 16:34] VITALS: BP 115/67; PULSE 78; RESP 18; BMI 34.4
[2016-12-26] MEDS ORDERED: ACETAMINOPHEN 500 MG TAB PO STA (16:56)
[2016-12-26] MEDS ORDERED: OXYTOCIN 30 UNITS/LR 500 ML IV SCH (19:30)
[2016-12-26] MEDS ORDERED: OXYTOCIN 30 UNITS/LR 500 ML IV PRN (19:30)
[2016-12-26] MEDS ORDERED: METHYLERGONOVINE 0.2 MG INJ IM PRN (19:30)
[2016-12-26] MEDS ORDERED: CEFAZOLIN 2 GM/50 ML (PMX) 50 ML IV SCH (19:30)
[2016-12-26] MEDS ORDERED: MISOPROSTOL 200 MCG TAB PR PRN (19:30)
[2016-12-26] MEDS ORDERED: CARBOPROST 250 MCG INJ IM PRN (19:30)
[2016-12-26] MEDS: LACTATED RINGER'S 1,000 ML IV SCH (21:02)
[2016-12-26] MEDS ORDERED: AMPICILLIN 2 GM/NS (PMX) 100 ML IV ONE (22:30)
[2016-12-26] MEDS ORDERED: DIPHENHYDRAMINE 50 MG CAP PO ONE (22:30)
[2016-12-26] MEDS ORDERED: ACETAMINOPHEN 325 MG TAB PO PRN (22:30)
[2016-12-27] MEDS: AMPICILLIN 1 GM/NS (PMX) 50 ML IV SCH ×3 (02:40→11:40)
[2016-12-27] MEDS: LACTATED RINGER'S 1,000 ML IV SCH ×3 (07:38→14:01)
[2016-12-27 09:59] VITALS: Ht 170.2 cm; Wt 99.7 kg
[2016-12-27 10:01] VITALS: BP 106/64; PULSE 80; RESP 18
[2016-12-27] MEDS ORDERED: CITRIC ACID/SODIUM CITRATE 15 ML CUP ONE (13:33)
[2016-12-27] MEDS ORDERED: METOCLOPRAMIDE 10 MG INJ ONE (13:50)
--- NOTE | 2016-12-27 13:51 | HP ---
Date/Time of Note Date/Time of Note DATE: 12/27/16 TIME: 13:48 OB - History Hx of Present Chief Complaint: headache Estimated Due Date: Jan 05, 2017 : 3 Para: 2 Spontaneous : 0 Therapeutic : 0 Care: Good Care Ultrasounds: Normal mid trimester US Obstetrical Complications: None Medical Complications: None Past Family/Social History * Past Medical, Surgical, Family and Obstetric Histories reviewed from chart. GBS Status: Positive OB Admission Exam Vital Signs Vital Signs Vital Signs Date Time Temp Pulse Resp B/P Pulse Ox O2 Delivery O2 Flow Rate FiO2 12/26/16 16:34 98.8 78 18 115/67 97 Room Air Physical Exam HEENT: WNL Heart: Rhythm Normal Lungs: Clear, Equal Abdomen: WNL Extremities: Normal Reflexes: Normal Cervical Dilatation: 1cm Effacement: 50% Station: -1 Membranes: Intact Heart Rate: 130's Accelerations: Accelerations Present Decelerations: No Decelerations Varibility: Moderate Last 72 hours Lab Results CBC & BMP 12/26/16 17:05 12/26/16 20:50 Liver Function Test 12/26/16 17:05 Alanine Aminotransferase (ALT/SGPT) 28 Albumin 3.4 Alkaline Phosphatase 135 H Aspartate Amino Transf (AST/SGOT) 21 Direct Bilirubin 0.00 Total Protein 7.0 OB Assessment/Plan Reason for admission: section Other Assessment: Previous c/s x2 and contractions Plan: Section INES VARGAS MD Dec 27, 2016 13:51
[2016-12-27] MEDS ORDERED: METOCLOPRAMIDE 10 MG INJ IV ONE (14:00)
[2016-12-27] MEDS ORDERED: CITRIC ACID/SODIUM CITRATE 15 ML CUP PO ONE (14:00)
[2016-12-27] MEDS ORDERED: ONDANSETRON 4 MG INJ ONE (14:06)
[2016-12-27] MEDS ORDERED: morphine SULFATE/PF (10 MG/10 ML) INJ ONE (14:06)
[2016-12-27] MEDS ORDERED: OXYTOCIN 30 UNITS/LR 500 ML IV ONE ×2 (14:24→15:23)
[2016-12-27] MEDS ORDERED: ACETAMINOPHEN 1000MG/100ML IV 100 ML IVPB ONE (14:30)
[2016-12-27] MEDS ORDERED: KETOROLAC 30 MG INJ ONE (14:38)
--- NOTE | 2016-12-27 15:29 | SIPON ---
Date/Time of Note Date/Time of Note DATE: 12/27/16 TIME: 15:27 Operative Report Preoperative Diagnosis Previous c/s x2 contractions Postoperative Diagnosis Same Operation/Procedure Performed Repeat c/s Surgeon Ines Vargas MD secretary administrative assistant Dr Melo Anesthesia: spinal Estimated blood loss: other (600 ml) Transfusion Required none Specimen Placenta Grafts/Implants none Complications none INES VARGAS MD Dec 27, 2016 15:29
--- NOTE | 2016-12-27 15:29 | SIPON ---
Date/Time of Note Date/Time of Note DATE: 12/27/16 TIME: 15:27 Operative Report Preoperative Diagnosis Previous c/s x2 contractions Postoperative Diagnosis Same Operation/Procedure Performed Repeat c/s Surgeon Ines Vargas MD volunteer services assistant Dr Melo Anesthesia: spinal Estimated blood loss: other (600 ml) Transfusion Required none Specimen Placenta Grafts/Implants none Complications none INES VARGAS MD Dec 27, 2016 15:29
--- NOTE | 2016-12-27 15:29 | SIPON ---
Date/Time of Note Date/Time of Note DATE: 12/27/16 TIME: 15:27 Operative Report Preoperative Diagnosis Previous c/s x2 contractions Postoperative Diagnosis Same Operation/Procedure Performed Repeat c/s Surgeon Ines Vargas MD television production assistant Dr Melo Anesthesia: spinal Estimated blood loss: other (600 ml) Transfusion Required none Specimen Placenta Grafts/Implants none Complications none INES VARGAS MD Dec 27, 2016 15:29
[2016-12-27] MEDS ORDERED: DIPHENHYDRAMINE 50 MG INJ IV PRN ×2 (15:30→16:00)
[2016-12-27] MEDS ORDERED: ONDANSETRON 4 MG INJ IV PRN ×2 (15:30→16:00)
[2016-12-27] MEDS ORDERED: morphine (1 MG/ML) 10ML SYRINGE IV PRN ×3 (15:30)
[2016-12-27] MEDS ORDERED: morphine 4 MG/ML VIAL IV PRN (16:00)
[2016-12-27] MEDS ORDERED: NALOXONE (0.4 MG/ML) INJ IV PRN (16:00)
[2016-12-27] MEDS ORDERED: morphine 2 MG INJ IV PRN ×2 (16:00)
[2016-12-27] MEDS: KETOROLAC 30 MG INJ IV PRN (17:28)
[2016-12-27 18:20] VITALS: BP 135/86; PULSE 68; RESP 18
[2016-12-27] MEDS ORDERED: METHYLERGONOVINE 0.2 MG INJ IM PRN (18:30)
[2016-12-27] MEDS ORDERED: MISOPROSTOL 200 MCG TAB PR PRN (18:30)
[2016-12-27] MEDS ORDERED: OXYTOCIN 30 UNITS/LR 500 ML IV PRN (18:30)
[2016-12-27] MEDS ORDERED: CARBOPROST 250 MCG INJ IM PRN (18:30)
[2016-12-27] MEDS ORDERED: LANOLIN 7 GM TUBE TOP PRN (18:30)
[2016-12-27] MEDS: OXYTOCIN 30 UNITS/LR 500 ML IV SCH ×2 (18:57→22:43)
[2016-12-27 19:45] VITALS: BP 123/89; PULSE 90; RESP 18
[2016-12-27] MEDS: SENNA/DOCUSATE NA (8.6MG/50MG) TAB PO SCH (21:00)
[2016-12-27] MEDS: IBUPROFEN 800 MG TAB PO SCH (22:00)
[2016-12-28] VITALS: BP 120/76; PULSE 88; RESP 18
--- NOTE | 2016-12-28 01:22 | OPR ---
DATE OF OPERATION: 12/27/2016 PREOPERATIVE DIAGNOSES: at 38 weeks and 5 days with previous section x2 and cont ractions. POSTOPERATIVE DIAGNOSES: at 38 weeks and 5 days with previous section x2 and con tractions. OPERATION: Repeat section. SURGEON: Ines Vargas MD COSMETOLOGIST APPRENTICE: ____. ANESTHESIA: Spinal. ANESTHESIOLOGIST: Dr. Loco. DESCRIPTION OF PROCEDURE: The patient was taken to the operating room and placed on the operating t able. After successful spinal anesthesia was given, the patient was placed in supine position. The area was prepared and draped in the usual sterile fashion. Spinal anesthesia was tested and was sa tisfactory. Using a scalpel, Pfannenstiel incision was made about 2 fingerbreadths above the symphy sis pubis. The incision was carried to the fascia. The fascia was incised and extended bilaterally with Castelan scissors. Two Kochers were used to separate the fascia from the muscle. The muscle was dissected down to peritoneum. Upon entering the peritoneal cavity, it was noted that the anterior w all of the uterus was adherent to the anterior abdominal wall and could not be . Incision was made on the uterus and extended. Head of baby was delivered from cephalic presentation. After suctioning clear of amniotic fluid, the baby was handed off to the team in attendance. Apg ars were 9 and 9. The placenta was delivered without difficulty. The uterus was closed with #1 Mon ocryl continuous locked. The ovaries and the tubes could not be reached due to adherent uterus to t he abdominal wall. The muscle was reapproximated with 0 chromic. The fascia was closed with #1 Pardeep ryl continuous in 2 segments. Subcutaneous tissue was reapproximated with 2-0 plain. The skin was closed with jyoti. ESTIMATED BLOOD LOSS: 600 mL. COUNTS: All counts were correct. Dictated By: INES VARGAS MD GD/NTS Conf#: [id number] DID#: [id number]
[2016-12-28] MEDS: LACTATED RINGER'S 1,000 ML IV SCH ×2 (02:20→10:05)
[2016-12-28] MEDS: KETOROLAC 30 MG INJ IV PRN ×2 (02:21→10:04)
[2016-12-28 04:00] VITALS: BP 122/77; PULSE 81; RESP 18
[2016-12-28] MEDS: IBUPROFEN 800 MG TAB PO SCH ×3 (06:00→21:49)
[2016-12-28 07:30] VITALS: BP 131/79; PULSE 84; RESP 16
[2016-12-28] MEDS ORDERED: INFLUENZA VIRUS VACCINE 0.5 ML SYG IM* ONE (10:00)
[2016-12-28] MEDS: SENNA/DOCUSATE NA (8.6MG/50MG) TAB PO SCH ×2 (10:04→20:21)
[2016-12-28 12:00] VITALS: BP 121/76; PULSE 86; RESP 18
--- NOTE | 2016-12-28 12:39 | QN ---
Documentation Comment No complaint Afebrile VSS Abdomen soft ND POD #1 Stable Ambulate Advance diet. INES VARGAS MD Dec 28, 2016 12:39
--- NOTE | 2016-12-28 12:39 | QN ---
Documentation Comment No complaint Afebrile VSS Abdomen soft ND POD #1 Stable Ambulate Advance diet. INES VARGAS MD Dec 28, 2016 12:39
--- NOTE | 2016-12-28 12:39 | QN ---
Documentation Comment No complaint Afebrile VSS Abdomen soft ND POD #1 Stable Ambulate Advance diet. INES VARGAS MD Dec 28, 2016 12:39
[2016-12-28] MEDS: OXYCODONE/ACETAMINOPHEN (5/325) TAB PO PRN ×2 (15:03→20:22)
[2016-12-28 16:20] VITALS: BP 124/70; PULSE 88; RESP 18
[2016-12-28 20:22] VITALS: BP 108/80; PULSE 91; RESP 18
[2016-12-29] MEDS: OXYCODONE/ACETAMINOPHEN (5/325) TAB PO PRN ×5 (01:14→17:13)
[2016-12-29 04:20] VITALS: BP 124/60; PULSE 76; RESP 18
[2016-12-29] MEDS: IBUPROFEN 800 MG TAB PO SCH ×3 (05:35→22:08)
[2016-12-29 07:30] VITALS: BP 116/63; PULSE 71
[2016-12-29] MEDS: SENNA/DOCUSATE NA (8.6MG/50MG) TAB PO SCH ×2 (09:06→21:27)
[2016-12-29 16:00] VITALS: BP 130/72; PULSE 71; RESP 20
--- NOTE | 2016-12-29 17:37 | PN ---
Date/Time of Note Date/Time of Note DATE: 12/29/16 TIME: 17:35 Assessment/Plan VTE Prophylaxis VTE Prophylaxis Intervention: ambulation Lines/Catheters IV Catheter Type (from Nrsg): Peripheral IV Subjective 24 Hr Interval Summary Free Text/Dictation 12/28/2016 0702 A 31 year female is doing finr aftet duramorph, pod #1. pain is controlled , no n/v, itching, headache, back pain, no back inflammation or irritation. care per surgery Exam/Review of Systems Vital Signs Vitals Vital Signs Date Time Temp Pulse Resp B/P Pulse Ox O2 Delivery O2 Flow Rate FiO2 12/29/16 07:30 98.2 71 116/63 Room Air 12/29/16 04:20 18 12/28/16 14:18 96 21 Intake and Output 12/28/16 12/28/16 12/29/16 15:00 23:00 07:00 Intake Total 3150 ml 1050 ml Output Total 4900 ml 850 ml Balance -1750 ml 200 ml Results Result Diagram: 12/28/16 0843 12/26/16 1705 Medications Medications Current Medications Oxycodone/ Acetaminophen (Percocet (5/ 325)) 1 tab Q4H PRN PO PAIN LEVEL 4-6; Start 12/27/16 at 18:30 Oxycodone/ Acetaminophen (Percocet (5/ 325)) 2 tab Q4H PRN PO PAIN LEVEL 7-10 Last administered on 12/29/16 17:13; Admin Dose 2 TAB; Start 12/27/16 at 18:30 Ibuprofen (Motrin) 800 mg Q8 PO Last administered on 12/29/16 14:58; Admin Dose 800 MG; Start 12/27/16 at 22:00 Simethicone (Mylicon) 160 mg Q8H PRN PO DISTENSION/GAS/BLOATING; Start at 18:30 Senna/Docusate Sodium (Senokot-S) 1 tab BID PO Last administered on 12/29/16 09:06; Admin Dose 1 TAB; Start 12/27/16 at 21:00 Diphtheria/ Tetanus/Acell Pertussis 0.5 ml 0.5 ml ONCE ONCE IM* ; Start at 09:00; Stop 12/30/16 at 09:01 Oxytocin/Lactated Ringer's 500 ml @ 0 mls/hr ONCE PRN IV For Hemorrhage Management; Start 12/27/16 at 18:30 Methylergonovine Maleate (Methergine) 0.2 mg ONCE PRN IM VAGINAL BLEEDING; Start 12/27/16 at 18:30 Carboprost Tromethamine (Hemabate) 250 mcg ONCE PRN IM VAGINAL BLEEDING; Start 12/27/16 at 18:30 Misoprostol (Cytotec) 1,000 mcg ONCE PRN [place] VAGINAL BLEEDING; Start 12/27/16 at 18:30 GEORGE PEREZ MD Dec 29, 2016 17:37
[2016-12-29 19:40] VITALS: BP 119/71; PULSE 74; RESP 20
[2016-12-30] MEDS: OXYCODONE/ACETAMINOPHEN (5/325) TAB PO PRN ×3 (02:58→16:11)
[2016-12-30 05:18] VITALS: BP 119/72; PULSE 81; RESP 19
[2016-12-30] MEDS: IBUPROFEN 800 MG TAB PO SCH ×2 (05:34→13:03)
[2016-12-30 07:30] VITALS: BP 122/76; PULSE 79; RESP 20
[2016-12-30] MEDS ORDERED: DIPHTH/TET/ACEL PERTUSS (ADULT) 0.5 ML VIAL IM* ONE (09:00)
[2016-12-30] MEDS: SENNA/DOCUSATE NA (8.6MG/50MG) TAB PO SCH (09:35)
[2016-12-30 16:00] VITALS: BP 117/80; PULSE 76; RESP 20
--- NOTE | 2016-12-30 19:17 | DS ---
Date/Time of Note Date/Time of Note DATE: 12/30/16 TIME: 19:19 Obstetrical Discharge Record Final Diagnosis Final Diagnosis: Term delivered Section Section: Repeat Condition on Discharge Physical Assessment Voiding: Yes Bowel Movement: Yes Breast: Soft, non-tender, Filling Fundus: Firm Abdomen and Incision: Incisioin intact Calf Tenderness: No Patient Condition: Stable INES VARGAS MD Dec 30, 2016 19:17
== END 2016-12-30 20:20 | disposition home or self-care (01) | DRG 766 ==
LOC: OBT 16:02 → L-D 16:05 → OBT 19:28 → L-D 19:28 → PP1 12-27 18:03
PROVIDERS: ADMIT Obstetrics & Gynecology; ATTEND Obstetrics & Gynecology
PROC: 10D00Z1 Extraction of Products of Conception, Low, Open Approach (ICD-10-PCS; principal; 2016-12-27 14:00)
DX: O34.211 Maternal care for low transverse scar from previous cesarean delivery (principal); Z37.0 Single live birth; Z3A.38 38 weeks gestation of pregnancy
CPT/HCPCS: 80053; 81001; 84560; 85025; 85610; 85730; 86592; 86850; 86900; 86901; 87340; 90686; 90715; 94760; G0463; J0131; J0290; J0690; J1885; J2274; J2405; J2590; J2765; J7120

== ENCOUNTER 2017-02-24 21:13 | Emergency (ER) | END 2017-02-25 02:38 | disposition home or self-care (01) ==

== ENCOUNTER 2017-04-09 13:43 | Emergency (ER) | END 2017-04-09 17:18 | disposition home or self-care (01) ==

== ENCOUNTER 2017-04-13 09:49 | Emergency (ER) | END 2017-04-13 15:51 | disposition home or self-care (01) ==

== ENCOUNTER 2018-11-09 09:22 | Inpatient (IN) | payer OTHER ==
[~2018-11-09] VITALS: Ht 165.1 cm; Wt 72.5 kg
[~2018-11-09 09:22] MED LIST changes: +ACET325T40 PO; +ASA400 ORAL; +CIPR500T4 PO; +DIAZ5TAB PO; +DICY10CA40 PO; +HYDR-3601 PO; +HYDR-4011 PO; +IBUP-1542 PO; +MES250 PO; +METR500T PO; +NAPR-985 PO; +NIF150 PO; +ONDA4TAB14 PO; +PANT40TA4 PO; +PRED20TA PO; +TRAM50TA PO; +VANC50SO PO; +Vancomycin Oral Syringe PO
[2018-11-09 09:30] VITALS: Ht 165.1 cm; Wt 72.5 kg
[2018-11-09] MEDS ORDERED: SOD CHLORIDE 0.9% 1,000 ML IV STA (09:42)
[2018-11-09] MEDS ORDERED: ONDANSETRON 4 MG INJ IV STA (09:42)
[2018-11-09] MEDS ORDERED: HYDROmorphONE 1 MG/ML SYG IV STA (09:42)
[2018-11-09] MEDS ORDERED: DEXAMETHASONE 10 MG/ML 1 ML INJ IV ONE (10:00)
[2018-11-09] MEDS ORDERED: AMPICILLIN/SULB 3 GM/NS (PMX) 100 ML IVPB ONE (12:00)
[2018-11-09] MEDS ORDERED: HYDROmorphONE 2 MG/ML SYG IV STA (12:16)
[2018-11-09] MEDS ORDERED: ACETAMINOPHEN 325 MG TAB PO PRN ×2 (12:30→16:00)
[2018-11-09] MEDS ORDERED: ONDANSETRON 4 MG INJ IV PRN (12:30)
[2018-11-09 14:19] VITALS: BP 117/68; PULSE 82; RESP 18
[2018-11-09] MEDS: ONDANSETRON 4 MG INJ IV PRN (16:29)
[2018-11-09] MEDS ORDERED: LEVALBUTEROL (NEB) 1.25 MG/0.5 ML AMP HHN PRN (16:30)
[2018-11-09] MEDS: HYDROmorphONE 0.5 MG/0.5 ML SYG IV PRN ×2 (16:33→22:12)
[2018-11-09] MEDS: PIPER-TAZO 3.375 GM IV (PMX) 100 ML IVPB SCH (18:34)
[2018-11-09] MEDS: HYDROCODONE/APAP (5/325) TAB PO PRN (18:34)
[2018-11-09] MEDS: PANTOPRAZOLE IV 80 MG in SOD CHLORIDE 0.9% 100 ML IV SCH (18:34)
[2018-11-09 20:04] VITALS: BP 124/71; PULSE 88; RESP 18
[2018-11-09] MEDS: METHYLPREDNISOLONE 40 MG INJ IV SCH (22:12)
[2018-11-09] MEDS: D5-NS + KCL 20 MEQ 1,000 ML IV SCH (22:12)
[2018-11-09] MEDS: MESALAMINE (EC) 400 MG CAP PO SCH (22:13)
[2018-11-09] MEDS: metroNIDAZOLE 500 MG/NS (PMX) 100 ML IVPB SCH ×2 (23:32→23:37)
[2018-11-09 23:35] VITALS: BP 101/61; PULSE 74; RESP 16
[2018-11-10] MEDS: PIPER-TAZO 3.375 GM IV (PMX) 100 ML IVPB SCH ×4 (00:50→17:28)
[2018-11-10] MEDS: HYDROCODONE/APAP (5/325) TAB PO PRN ×4 (00:50→18:31)
[2018-11-10 02:00] VITALS: BP 106/63; PULSE 80; RESP 18
[2018-11-10] MEDS: PANTOPRAZOLE IV 80 MG in SOD CHLORIDE 0.9% 100 ML IV SCH ×3 (02:00→22:00)
[2018-11-10] MEDS: HYDROmorphONE 0.5 MG/0.5 ML SYG IV PRN ×4 (03:12→22:24)
[2018-11-10] MEDS: metroNIDAZOLE 500 MG/NS (PMX) 100 ML IVPB SCH ×3 (05:54→18:32)
[2018-11-10 08:08] VITALS: BP 91/54; PULSE 68; RESP 18
[2018-11-10] MEDS: D5-NS + KCL 20 MEQ 1,000 ML IV SCH ×3 (08:20→22:36)
[2018-11-10 09:33] VITALS: BP 99/59
[2018-11-10] MEDS: METHYLPREDNISOLONE 40 MG INJ IV SCH ×2 (09:40→22:23)
[2018-11-10] MEDS: MESALAMINE (EC) 400 MG CAP PO SCH ×3 (09:41→22:32)
[2018-11-10 09:53] VITALS: BP 99/59; PULSE 66
[2018-11-10 14:40] VITALS: BP 102/58; PULSE 78; RESP 18
[2018-11-10] MEDS ORDERED: PEG/ELECTROLYTES 4L BTL PO ONE (15:30)
[2018-11-10 20:00] VITALS: BP 128/82; PULSE 85; RESP 20
[2018-11-11] VITALS (13 sets, daily range): BP systolic 86–136; BP diastolic 57–85; PULSE 66–81; RESP 14–20
[2018-11-11] MEDS: HYDROCODONE/APAP (5/325) TAB PO PRN (00:03)
[2018-11-11] MEDS: PIPER-TAZO 3.375 GM IV (PMX) 100 ML IVPB SCH ×5 (00:04→18:36)
[2018-11-11] MEDS: ONDANSETRON 4 MG INJ IV PRN ×2 (00:08→10:11)
[2018-11-11] MEDS: metroNIDAZOLE 500 MG/NS (PMX) 100 ML IVPB SCH ×5 (00:34→19:24)
[2018-11-11] MEDS: HYDROmorphONE 0.5 MG/0.5 ML SYG IV PRN ×6 (02:19→22:09)
[2018-11-11] MEDS: PANTOPRAZOLE IV 80 MG in SOD CHLORIDE 0.9% 100 ML IV SCH ×3 (04:11→23:07)
[2018-11-11] MEDS: MESALAMINE (EC) 400 MG CAP PO SCH ×3 (08:55→21:26)
[2018-11-11] MEDS: METHYLPREDNISOLONE 40 MG INJ IV SCH ×2 (10:11→21:26)
[2018-11-11] MEDS ORDERED: ONDANSETRON 4 MG INJ IV PRN (11:00)
[2018-11-11] MEDS ORDERED: HYDROmorphONE 1 MG/5 ML IV SYRINGE IV PRN ×3 (11:00)
[2018-11-11] MEDS ORDERED: ALBUTEROL 0.083% (NEB) 2.5 MG/3 ML AMP HHN PRN (11:00)
[2018-11-11] MEDS ORDERED: MEPERIDINE 25 MG INJ IV PRN (11:00)
[2018-11-11] MEDS ORDERED: FENTAnyl 50 MCG/ML VIAL ONE (12:17)
[2018-11-11] MEDS ORDERED: PROPOFOL 40 ML ONE (12:17)
[2018-11-11] MEDS ORDERED: metroNIDAZOLE 500 MG/NS (PMX) 100 ML IVPB SCH (22:20)
[2018-11-11] MEDS: D5-NS + KCL 20 MEQ 1,000 ML IV SCH (23:07)
[2018-11-12] MEDS: D5-NS + KCL 20 MEQ 1,000 ML IV SCH ×3 (00:20→21:21)
[2018-11-12] MEDS: PIPER-TAZO 3.375 GM IV (PMX) 100 ML IVPB SCH ×4 (00:46→17:32)
[2018-11-12] MEDS: metroNIDAZOLE 500 MG/NS (PMX) 100 ML IVPB SCH ×4 (01:44→18:25)
[2018-11-12 02:00] VITALS: BP 108/69; PULSE 63; RESP 19
[2018-11-12] MEDS: HYDROmorphONE 0.5 MG/0.5 ML SYG IV PRN ×4 (02:15→18:23)
[2018-11-12] MEDS: PANTOPRAZOLE IV 80 MG in SOD CHLORIDE 0.9% 100 ML IV SCH ×2 (04:00→11:39)
[2018-11-12 08:34] VITALS: BP 113/71; PULSE 68; RESP 17
[2018-11-12] MEDS: MESALAMINE (EC) 400 MG CAP PO SCH ×3 (08:57→21:21)
[2018-11-12] MEDS: METHYLPREDNISOLONE 40 MG INJ IV SCH ×2 (08:58→21:21)
[2018-11-12] MEDS: HYDROCODONE/APAP (5/325) TAB PO PRN ×3 (09:06→21:16)
[2018-11-12 14:00] VITALS: BP 110/71; PULSE 75; RESP 18
[2018-11-12] MEDS ORDERED: SOD CHLORIDE 0.9% 250 ML IV* ONE (15:04)
[2018-11-12 20:00] VITALS: BP 106/61; PULSE 69; RESP 18
[2018-11-13] MEDS: metroNIDAZOLE 500 MG/NS (PMX) 100 ML IVPB SCH ×4 (00:04→18:40)
[2018-11-13] MEDS: PIPER-TAZO 3.375 GM IV (PMX) 100 ML IVPB SCH ×4 (00:05→17:45)
[2018-11-13] MEDS: HYDROmorphONE 0.5 MG/0.5 ML SYG IV PRN ×5 (00:10→17:30)
[2018-11-13 02:00] VITALS: BP 110/70; PULSE 70; RESP 18
[2018-11-13] MEDS: HYDROCODONE/APAP (5/325) TAB PO PRN ×3 (03:27→16:22)
[2018-11-13] MEDS ORDERED: PANTOPRAZOLE (EC) 40 MG TAB PO ONE (04:55)
[2018-11-13] MEDS ORDERED: PANTOPRAZOLE (EC) 40 MG TAB PO SCH (06:00)
[2018-11-13 08:12] VITALS: BP 109/71; PULSE 65; RESP 18
[2018-11-13] MEDS: METHYLPREDNISOLONE 40 MG INJ IV SCH ×2 (09:23→20:27)
[2018-11-13] MEDS: MESALAMINE (EC) 400 MG CAP PO SCH ×3 (09:27→20:28)
[2018-11-13] MEDS ORDERED: AL HYDROX/MG HYDROX/SIMETH 30 ML CUP PO PRN (12:30)
[2018-11-13 14:22] VITALS: BP 114/65; PULSE 67; RESP 18
[2018-11-13] MEDS: D5-NS + KCL 20 MEQ 1,000 ML IV SCH (15:13)
[2018-11-13] MEDS ORDERED: SOD FERRIC GLUC COMPLX 125 MG in SOD CHLORIDE 0.9% 100 ML IVPB SCH (17:00)
[2018-11-13 20:00] VITALS: BP 110/69; PULSE 68; RESP 18
== END 2018-11-13 22:00 | disposition home or self-care (01) | DRG 387 ==
LOC: E/R 09:22 → MS1 12:19 → PP2 23:11
PROVIDERS: ADMIT Internal Medicine; ATTEND Internal Medicine
PROC: 0DBL8ZX Excision of Transverse Colon, Via Natural or Artificial Opening Endoscopic, Diagnostic (ICD-10-PCS; 2018-11-11)
PROC: 0DBM8ZX Excision of Descending Colon, Via Natural or Artificial Opening Endoscopic, Diagnostic (ICD-10-PCS; 2018-11-11)
PROC: 0DBK8ZX Excision of Ascending Colon, Via Natural or Artificial Opening Endoscopic, Diagnostic (ICD-10-PCS; principal; 2018-11-11 12:30)
DX: K51.911 Ulcerative colitis, unspecified with rectal bleeding (principal); J45.909 Unspecified asthma, uncomplicated; D12.4 Benign neoplasm of descending colon; D12.3 Benign neoplasm of transverse colon; D47.3 Essential (hemorrhagic) thrombocythemia; D50.0 Iron deficiency anemia secondary to blood loss (chronic)
CPT/HCPCS: 36415; 74176; 80048; 80053; 82607; 82728; 83540; 83690; 84703; 85025; 85610; 85730; 86850; 86900; 86901; 86920; 87075; 88305; 93005; 96374; 96375; 96376; C9113; J0295; J1100; J1170; J2405; J2543; J2916; J2920; J3010; J3480; J7030; J7040